=== PATIENT | female | born 1965 | race American Indian/Alaskan Native ===

== ENCOUNTER 2019-07-09 10:16 | Outpatient (CLI) | payer BC ==
--- NOTE | 2019-07-09 12:24 | Vascular Lab Report ---
DUPLEX DOPPLER LOWER EXTREMITY VEINS, LEFT INDICATION: PAIN AND SWELLING OF LEFT KNEE. TECHNIQUE: Duplex doppler imaging was performed through the veins of the left lower extremity using venous compression and other maneuvers. COMPARISON: No relevant prior imaging study available. FINDINGS: Left Common femoral vein: Negative. Left Superficial femoral vein: Negative. Left Popliteal vein: Negative. Left Calf veins: Negative. Additional findings: Moderate Alvarado's cyst in the left popliteal fossa measures 3.2 x 1.5 cm.. IMPRESSION: No sonographic evidence for DVT in the left lower extremity. Popliteal cyst. Signer Name: Guerrero Dior Jr, MD Signed: 07/09/2019 12:20 PM Workstation Name: [id number]
== END 2019-07-09 10:17 | disposition home or self-care (01) ==
LOC: VAS 10:16
PROVIDERS: ATTEND Internal Medicine
DX: M71.22 Synovial cyst of popliteal space [Baker], left knee (principal); M25.462 Effusion, left knee

== ENCOUNTER 2019-07-12 08:16 | Outpatient (CLI) | payer BC ==
--- NOTE | 2019-07-12 11:25 | Mammography Report ---
DIGITAL SCREENING MAMMOGRAM WITH CAD, 07/12/2019 INDICATION: Routine screening mammography. TECHNIQUE: Digital bilateral 2D mammography was obtained in the craniocaudal and mediolateral obliq ue projections. This examination was interpreted with the benefit of Computer-Aided Detection analysi s. COMPARISON: Prior mammogram 08/13/2014 FINDINGS: Breast Density: There are scattered areas of fibroglandular density. There is no evidence of dominant mass, suspicious calcifications or architectural distortion in the r ight breast. There is a 1.2 cm nodular density in the subareolar to 12:00 position of the left breast , anterior depth, which requires further evaluation. IMPRESSION: 1. A nodular density in the left breast requires further evaluation with targeted ultrasound and summer tional views if needed. Follow up recommendation: Ultrasound Category 0: Incomplete. Needs additional imaging evaluation and/or prior mammograms for comparison. A "normal" or negative report should not discourage follow up or biopsy of a clinically significant f inding. A written summary of these findings will be mailed to the patient. The patient will be entered into a mammography reporting system which will generate a reminder letter for the patient's next appointmen t at the appropriate interval. The [employer] recommends yearly mammograms starting at age 40 and continuing as l dorinda as a woman is in good health. Breast MRI is recommended for women with an approximate 20-25% or greater lifetime risk of breast cancer, including women with a strong family history of breast or ova kati cancer or who have been treated for Hodgkin's disease. Signer Name: Loli Pelayo MD Signed: 07/12/2019 11:20 AM Workstation Name: [id number]
== END 2019-07-12 08:17 | disposition home or self-care (01) ==
LOC: MAMMO 08:16
PROVIDERS: ATTEND Internal Medicine
DX: N63.21 Unspecified lump in the left breast, upper outer quadrant (principal)
CPT/HCPCS: 77067